=== PATIENT | male | born 1950 | race Caucasian/White ===

== ENCOUNTER 2018-10-15 22:32 | Inpatient (IN) | payer MEDICARE ==
[~2018-10-15] VITALS: Ht 177.8 cm; Wt 79.1 kg
--- NOTE | ~2018-10-15 | WRIGHTHP ---
[place], [place] PATIENT HISTORY AND PHYSICAL EXAM NAME: OSMEL OLEARY UNIT #: [id number] ROOM: [facility] DOCTOR: RON JACOBS MD BIRTHDATE: [birth year] DOS: HISTORY OF PRESENT ILLNESS: The patient is a 68-year-old gentleman with a past medical history of benign essential hypertension, mixed hyperlipidemia, type 2 diabetes mellitus, who presented to the Emergency Department with chest pains, which were off and on, but worse on the day of admission. The patient felt sweaty. There was no shortness of breath. No dizziness or fainting episode. The patient's troponin I level was found to be elevated, but since his pain had resolved, door closer were consulted through the ER, decided to admit the patient to [facility] ICU with IV heparin and then patient was taken to [facility] this morning for heart catheterization, which has been arranged. The patient's cardiac enzymes went as high as a troponin I level of 5.1 and then reduced to 4.1. MEDICATIONS: The patient on Lipitor, aspirin, given lisinopril and IV heparin. KNOWN ALLERGIES: PENICILLIN. IMPRESSION: 1. The patient is sent on an urgent basis to [facility]. Moved by door closer, Dr. Woo, for an urgent heart catheterization for acute myocardial infarction. 2. Mixed hyperlipidemia already being treated with Lipitor. 3. The patient anticoagulated with IV heparin and was already on aspirin and chest pain free. 4. Benign essential hypertension with normal blood pressures. RON JACOBS MD CM:HISPHYS:PATIENT HISTORY AND PHYSICAL EXAMINATION [id number] RON JACOBS MD 10/16/18 1517 interface
--- NOTE | ~2018-10-15 | EKG ---
[place], [place] ELECTROCARDIOGRAM REPORT NAME: OSMEL OLEARY UNIT #: [id number] ROOM: [facility] DOCTOR: MERLINE DRAFT REPORT BIRTHDATE: [birth year] [facility] Test Date: 2018-10-16 Test Time: 04:36:49 Pat Name: OSMEL OLEARY Department: Room: [facility] Gender: M Plasterer Foreman: Odell Lee : 1950 Requested By: SAM EGAN Order Number: [id number] Reading MD: Violetta Woo MD Measurements Intervals [place] Rate: 54 P: 22 [place]: 148 QRS: 61 QRSD: 87 T: 78 QT: 476 QTc: 452 Interpretive Statements Sinus rhythm Nonspecific T abnrm, anterolateral leads Electronically Signed On 10-17-2018 11:10:00 PST by Violetta Woo MD CM:EKGRPT:ELECTROCARDIOGRAM REPORT [id number] SAM TELLEZ DRAFT REPORT SAM EGAN DO
--- NOTE | ~2018-10-15 | EKG ---
[place], [place] ELECTROCARDIOGRAM REPORT NAME: OSMEL OLEARY UNIT #: [id number] ROOM: [facility] DOCTOR: MERLINE DRAFT REPORT BIRTHDATE: [birth year] [facility] Test Date: 2018-10-15 Test Time: 22:41:00 Pat Name: OSMEL OLEARY Department: Room: [facility] Gender: M Revit Drafter: Odell Lee : 1950 Requested By: SAM EGAN Order Number: [id number] Reading MD: Violetta Woo MD Measurements Intervals [place] Rate: 75 P: 76 [place]: 178 QRS: 55 QRSD: 85 T: 77 QT: 396 QTc: 443 Interpretive Statements Sinus rhythm Nonspecific T abnrm, anterolateral leads Electronically Signed On 10-17-2018 11:09:47 PST by Violetta Woo MD CM:EKGRPT:ELECTROCARDIOGRAM REPORT [id number] SAM TELLEZ DRAFT REPORT SAM EGAN DO
--- NOTE | ~2018-10-15 | EKG ---
[place], [place] ELECTROCARDIOGRAM REPORT NAME: OSMEL OLEARY UNIT #: [id number] ROOM: [facility] DOCTOR: MERLINE DRAFT REPORT BIRTHDATE: [birth year] [facility] Test Date: 2018-10-16 Test Time: 01:32:45 Pat Name: OSMEL OLEARY Department: Room: [facility] Gender: M Art Librarian: Odell Lee : 1950 Requested By: SAM EGAN Order Number: [id number] Reading MD: Violetta Woo MD Measurements Intervals [place] Rate: 67 P: 83 [place]: 177 QRS: 62 QRSD: 88 T: 77 QT: 427 QTc: 451 Interpretive Statements Sinus rhythm Atrial premature complex Abnormal T, consider ischemia, lateral leads Electronically Signed On 10-17-2018 11:09:55 PST by Violetta Woo MD CM:EKGRPT:ELECTROCARDIOGRAM REPORT [id number] SAM TELLEZ DRAFT REPORT SAM EGAN DO
[2018-10-15 22:36] VITALS: BP 136/91
[2018-10-15 22:48] VITALS: BP 150/98
[2018-10-15 22:49] LABS: BASO # 0.1 10*3/uL (0.0-0.1); BASO % 0.8 % (0.0-1.0); EOS # 0.6 10*3/uL (0.0-0.4); EOS % 4.8 % (1.0-4.0); HEMATOCRIT 44.9 % (42.0-52.0); HEMOGLOBIN 15.6 g/dl (14.0-18.0); LYMPH # 2.3 10*3/uL (1.3-4.4); LYMPH % 17.6 % (27.0-41.0); MEAN CELL VOLUME 94.1 fl (80.0-94.0); MEAN CORPUSCULAR HGB 32.7 pg (27.0-31.0); MEAN CORPUSCULAR HGB CONC 34.7 g/dl (33.0-37.0); MEAN PLATELET VOLUME 10.5 fl (9.6-12.3); MONO # 1.3 10*3/uL (0.1-1.0); MONO % 9.8 % (3.0-9.0); NEUT # 8.8 10*3/uL (2.3-7.9); NEUT % 66.7 % (47.0-73.0); PLATELET COUNT AUTOMATED 224 10*3/uL (130-400); RED BLOOD COUNT 4.77 10*6/uL (4.50-5.90); RED CELL DISTRI WIDTH 12.9 % (0-14.5); WHITE BLOOD COUNT 13.2 10*3/uL (4.8-10.8)
[2018-10-15 22:58] LABS: ACT PARTIAL THROMBO TIME 23.9 SECONDS (20.8-31.5); INTERNATIONAL NORM RATIO 0.9 (2.0-3.5)
[2018-10-15 23:06] LABS: ALBUMIN 4.2 gm/dl (3.1-4.5); CREATININE 1.55 mg/dL (0.70-1.30); TOTAL PROTEIN 7.6 gm/dL (6.4-8.2)
[2018-10-15 23:09] LABS: POTASSIUM 4.1 mmol/L (3.5-5.1)
[2018-10-15 23:10] LABS: TROPONIN I 1.42 ng/ml (<0.045)
[2018-10-16] VITALS: BP 137/91
[2018-10-16 00:01] VITALS: BP 130/83
[2018-10-16] MEDS ORDERED: ENALAPRIL MALEAT5 MG PO (00:30)
[2018-10-16] MEDS ORDERED: PRAVASTATIN SOD40 MG PO (00:31)
[2018-10-16] MEDS ORDERED: METFORMIN HYD1000 MG PO (00:32)
[2018-10-16] MEDS ORDERED: MULTIPLE VITAM1 EAC2 PO (00:43)
[2018-10-16] MEDS ORDERED: XYZAL5 M1 PO ×2 (00:43→10:58)
[2018-10-16] MEDS ORDERED: ASPIR LOW81 MG PO (00:43)
[2018-10-16] MEDS ORDERED: CO Q10100 MG PO (00:44)
[2018-10-16] MEDS ORDERED: TURMERIC538 MG PO (00:44)
[2018-10-16] MEDS ORDERED: MASON NATURAL600 MG PO (00:45)
[2018-10-16] MEDS ORDERED: MAGNESIUM100 M1 PO (00:45)
[2018-10-16] MEDS ORDERED: VITAMIN E400 UNI2 PO (00:50)
[2018-10-16] MEDS ORDERED: NIACIN50 M1 PO (00:54)
[2018-10-16 04:00] VITALS: BP 122/81
[2018-10-16 08:00] VITALS: BP 124/71
[2018-10-16 12:00] VITALS: BP 119/71
[2018-10-16 14:10] LABS: BUN 16 mg/dl (7-24); CHLORIDE 105 mmol/L (98-107); CREATININE 0.98 mg/dL (0.70-1.30); POTASSIUM 3.7 mmol/L (3.5-5.1); SODIUM 139 mmol/L (136-145)
== END 2018-10-16 13:58 | disposition short-term general hospital (02) | DRG 280 ==
LOC: ED 22:32 → EDHOLD 23:32 → ICCU 23:32
PROVIDERS: Internal Medicine Cardiovascular Disease; Student in an Organized Health Care Education/Training Program
DX: I21.4 Non-ST elevation (NSTEMI) myocardial infarction (principal); N17.0 Acute kidney failure with tubular necrosis; E78.2 Mixed hyperlipidemia; N18.1 Chronic kidney disease, stage 1; I12.9 Hypertensive chronic kidney disease with stage 1 through stage 4 chronic kidney disease, or unspecified chronic kidney disease; E11.9 Type 2 diabetes mellitus without complications; Z82.49 Family history of ischemic heart disease and other diseases of the circulatory system; Z88.0 Allergy status to penicillin; Z88.1 Allergy status to other antibiotic agents; Z88.8 Allergy status to other drugs, medicaments and biological substances; Z87.81 Personal history of (healed) traumatic fracture; Z83.3 Family history of diabetes mellitus; Z79.82 Long term (current) use of aspirin; Z79.84 Long term (current) use of oral hypoglycemic drugs; Z79.899 Other long term (current) drug therapy

== ENCOUNTER → 2018-10-30 | Outpatient (CLI) | payer MEDICARE ==
[~2018-10-30] MED LIST: ASPIR LOW81 MG PO; CO Q10100 MG PO; ENALAPRIL MALEAT5 MG PO; MAGNESIUM100 M1 PO; MASON NATURAL600 MG PO; METFORMIN HYD1000 MG PO; MULTIPLE VITAM1 EAC2 PO; NIACIN50 M1 PO; PRAVASTATIN SOD40 MG PO; TURMERIC538 MG PO; VITAMIN E400 UNI2 PO; XYZAL5 M1 PO
== END | disposition home or self-care (01) ==
LOC: US 11:30
DX: R60.0 Localized edema (principal)

== ENCOUNTER 2024-05-29 17:16 | Emergency (ER) | payer MEDICARE ==
[~2024-05-29] VITALS: Ht 177.8 cm; Wt 79.4 kg
[2024-05-29] MEDS ORDERED: CLOPIDOGREL75 MG PO (17:30)
[2024-05-29] MEDS ORDERED: ROSUVASTATIN CA20 MG PO (17:32)
[2024-05-29] MEDS ORDERED: IMDUR SA30 MG PO (17:34)
[2024-05-29] MEDS ORDERED: GLYBURIDE2.5 MG PO (17:35)
[2024-05-29 17:50] LABS: BASO # 0.1 10*3/uL (0.0-0.1); BASO % 0.8 % (0.0-1.0); EOS # 0.2 10*3/uL (0.0-0.4); EOS % 2.5 % (1.0-4.0); HEMATOCRIT 43.8 % (42.0-52.0); LYMPH # 1.6 10*3/uL (1.3-4.4); LYMPH % 19.5 % (27.0-41.0); MEAN CELL VOLUME 96.3 fl (80.0-94.0); MEAN CORPUSCULAR HGB 32.1 pg (27.0-31.0); MEAN CORPUSCULAR HGB CONC 33.3 g/dl (33.0-37.0); MEAN PLATELET VOLUME 9.9 fl (9.6-12.3); MONO % 11.6 % (3.0-9.0); NEUT # 5.5 10*3/uL (2.3-7.9); NEUT % 65.1 % (47.0-73.0); PLATELET COUNT AUTOMATED 221 10*3/uL (130-400); RED BLOOD COUNT 4.55 10*6/uL (4.50-5.90); RED CELL DISTRI WIDTH 12.8 % (0-14.5); WHITE BLOOD COUNT 8.4 10*3/uL (4.8-10.8)
[2024-05-29 18:00] LABS: ACT PARTIAL THROMBO TIME 25.7 SECONDS (20.0-32.1)
[2024-05-29 18:10] LABS: BUN 24 mg/dl (9-23); CHLORIDE 103 mmol/L (98-107); CPK 71 U/L (34-171); POTASSIUM 4.3 mmol/L (3.4-5.1)
== END 2024-05-29 21:28 | disposition home or self-care (01) ==
LOC: ED 17:16
PROVIDERS: Physician Assistant Medical
DX: J06.9 Acute upper respiratory infection, unspecified (principal); Z20.822 Contact with and (suspected) exposure to COVID-19; I10 Essential (primary) hypertension; R78.5 Finding of other psychotropic drug in blood; R11.0 Nausea; E11.9 Type 2 diabetes mellitus without complications; Z88.0 Allergy status to penicillin; Z88.1 Allergy status to other antibiotic agents; Z88.8 Allergy status to other drugs, medicaments and biological substances; Z98.890 Other specified postprocedural states